=== PATIENT | female | born 1955 | race Caucasian/White ===

== ENCOUNTER 2018-06-15 11:10 | Emergency (ER) | payer BC ==
[2018-06-15 11:40] LABS: BILIRUBIN,URINE NEGATIVE (NEGATIVE); GLUCOSE, URINE (UA) NEGATIVE (NEGATIVE); KETONES,URINE (UA) NEGATIVE (NEGATIVE); LEUKOCYTE ESTERASE, URINE MODERATE (NEGATIVE); NITRITE,URINE NEGATIVE (NEGATIVE); OCCULT BLOOD,URINE MODERATE (NEGATIVE); PH,URINE 7.5 PH (5.0-7.5); PROTEIN,URINE TRACE mg/dL (NEGATIVE); UROBILINOGEN,URINE 0.2 (NORMAL) E.U./dL (NORMAL)
[2018-06-15 11:42] LABS: CLARITY,URINE CLOUDY (CLEAR)
[2018-06-15 11:48] LABS: BACTERIA,URINE Moderate /HPF (None Seen); SQUAMOUS EPITHELIAL CELL,UR FEW Squamous (<= Few)
[2018-06-15] MEDS ORDERED: PHENAZOPYRIDINE 100 MG TABLET PO STA (12:12)
[2018-06-15] MEDS ORDERED: cephALEXin 250 MG CAPSULE PO STA (12:12)
--- NOTE | 2018-06-15 12:15 | ED Physician Documentation ---
History of Present Illness - Stated complaint Stated Complaint: FEMALE - Chief complaint Chief Complaint: Abd Pain - Additonal information Additional information: hx from pt 62 f visiting locally to ED with several weeks of dysuria freq and some hematuria no sig flank pain chills no fever no NV is sexually active Review of Systems Constitutional: reports: Chills. denies: Fever Cardiac: denies: Chest pain / pressure Respiratory: denies: Cough GI: reports: Abdominal Pain (suprapubic). 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 Derm: Skin cancer surgery - Present Medications Home Medications: Ambulatory Orders Medication Instructions Recorded Confirmed Cephalexin [Keflex] 500 mg PO Q6H #28 capsule 06/15/18 Paroxetine HCl [Paxil] 20 mg 06/15/18 Phenazopyridine [Pyridium] 100 mg PO Q8H PRN #9 tablet 06/15/18 - Allergies Allergies/Adverse Reactions: Allergies Allergy/AdvReac Type Severity Reaction Status Date / Time No Known Drug Allergies Allergy Verified 06/15/18 11:19 - Social History Does the pt smoke?: Yes Smoking Status: Current every day smoker Does the pt drink ETOH?: Yes Does the pt have substance abuse?: No - Immunizations Immunizations: TDAP >10years/unknown, Other immun current PD ED PE NORMAL - Vitals Vital signs reviewed: Yes - Cardiac Cardiac: RRR - Respiratory Respiratory: No respiratory distress - Abdomen Abdomen: Soft, Other (mild suprapubic TTP) - Back Back: No CVA TTP - Neuro Neuro: Alert and oriented X 3 Results - Vitals Vitals: Vital Signs - 24 hr 06/15/18 11:17 Temperature 36.6 C Heart Rate 87 Respiratory 20 Rate Blood Pressure 131/82 H O2 Saturation 97 - Labs Labs: Laboratory Tests 06/15/18 11:30 Urine Color YELLOW Urine Clarity CLOUDY Urine pH 7.5 Ur Specific [place] 1.010 Urine Protein TRACE Urine Glucose (UA) NEGATIVE Urine Ketones NEGATIVE Urine Occult Blood MODERATE H Urine Nitrite NEGATIVE Urine Bilirubin NEGATIVE Urine Urobilinogen 0.2 (NORMAL) Ur Leukocyte Esterase MODERATE H Urine RBC 6-10 H Urine WBC >25 H Ur Squamous Epith Cells FEW Squamous Urine Bacteria Moderate H Ur Microscopic Review INDICATED Urine Culture Comments INDICATED PD MEDICAL DECISION MAKING - ED course ED course: MSE performed infection identified = UTI small blood but no flank pain so doubt stone sexually active but denies risk for STDs -added on STDs to urine but defer pelvic exam will tx and dc - Sepsis Event Vital Signs: Vital Signs - 24 hr 06/15/18 11:17 Temperature 36.6 C Heart Rate 87 Respiratory 20 Rate Blood Pressure 131/82 H O2 Saturation 97 Departure - Departure Disposition: Home, Self Care Clinical Impression: UTI (urinary tract infection) Qualifiers: Urinary tract infection type: acute cystitis Hematuria presence: with hematuria Qualified Code(s): N30.01 - Acute cystitis with hematuria Condition: Good Instructions: ED UTI Cystitis Female Prescriptions: Cephalexin [Keflex] 500 mg PO Q6H #28 capsule Phenazopyridine [Pyridium] 100 mg PO Q8H PRN #9 tablet PRN Reason: painful urination Comments: You have a urine infection. A culture will be run and the ER staff will call you if the culture indicates you need to be on a different antibiotics than the one I already prescribes Please follow up with your PMD for a repeat urine test after completing antibiotics to be sure all the infection and blood have cleared Return if worse (high fever, severe flank pain, vomtiign and cannot keep medications down)
[2018-06-15 12:32] VITALS: BP 123/73
== END 2018-06-15 12:31 | disposition home or self-care (01) ==
LOC: ED 11:10
DX: N30.01 Acute cystitis with hematuria (principal)
CPT/HCPCS: 81001; 87077; 87086; 87491; 87591; 99283; A9270; 81003

== ENCOUNTER 2019-02-11 20:37 | Emergency (ER) | payer BC ==
[2019-02-11 20:42] VITALS: BP 127/70
[2019-02-11] MEDS ORDERED: PHENAZOPYRIDINE 100 MG TABLET PO STA (20:57)
[2019-02-11] MEDS ORDERED: cephALEXin 250 MG CAPSULE PO STA (20:58)
--- NOTE | 2019-02-11 21:00 | ED Physician Documentation ---
History of Present Illness - Stated complaint Stated Complaint: FEMALE - Chief complaint Chief Complaint: UTI - History obtained from History obtained from: Patient - History of Present Illness Timing: Today - Additonal information Additional information: Patient is a previously healthy 63-year-old female presenting with concern for possible bladder infection. Patient has had UTIs in the past and states symptoms are similar to previous episodes. Patient reports symptoms started earlier today with dysuria, hematuria, and sensation of full bladder. Patient family denies fever, back pain, abdominal pain, nausea, vomiting, or stool changes. No particular improving or worsening factors to her symptoms noted. Review of Systems Constitutional: denies: Fever : reports: Dysuria, Hematuria PD PAST MEDICAL HISTORY - Past Medical History Past Medical History: Yes Cardiovascular: None Respiratory: None Neuro: None Endocrine/Autoimmune: None GI: None LOGISTIC SPECIALIST: None : None HEENT: None Psych: None Musculoskeletal: None Derm: Other Other Past Medical History: melanoma - Past Surgical History Past Surgical History: Yes /LOGISTIC SPECIALIST: Hysterectomy Derm: Skin cancer surgery - Present Medications Home Medications: Ambulatory Orders Medication Instructions Recorded Confirmed Cephalexin [Keflex] 500 mg PO Q6H #28 capsule 06/15/18 Paroxetine HCl [Paxil] 20 mg 06/15/18 Phenazopyridine [Pyridium] 100 mg PO Q8H PRN #9 tablet 06/15/18 Cephalexin [Keflex] 500 mg PO Q6HR #28 capsule 02/11/19 Phenazopyridine HCl [Pyridium] 200 mg PO TID PRN #6 tablet 02/11/19 - Allergies Allergies/Adverse Reactions: Allergies Allergy/AdvReac Type Severity Reaction Status Date / Time No Known Drug Allergies Allergy Verified 02/11/19 20:39 - Social History Does the pt smoke?: Yes Smoking Status: Former smoker Does the pt drink ETOH?: Yes Does the pt have substance abuse?: No - Immunizations Immunizations are current?: No Immunizations: TDAP >10years/unknown, Other immun current - POLST Patient has POLST: No PD ED PE NORMAL - General General: Alert and oriented X 3, No acute distress, Well developed/nourished - HEENT HEENT: Atraumatic - Cardiac Cardiac: RRR, No murmur - Respiratory Respiratory: No respiratory distress, Clear bilaterally - Abdomen Abdomen: Normal bowel sounds, Soft, Non tender (No suprapubic tenderness), Non distended - Back Back: No CVA TTP - Derm Derm: Normal color, Warm and dry, No rash - Extremities Extremities: No deformity, No tenderness to palpate - Neuro Neuro: Alert and oriented X 3, No motor deficit, No sensory deficit - Psych Psych: Normal mood, Normal affect Results - Vitals Vitals: Vital Signs - 24 hr 02/11/19 20:41 Temperature 36.6 C Heart Rate 67 Respiratory 16 Rate Blood Pressure 127/70 O2 Saturation 98 Oxygen O2 Source Room air PD MEDICAL DECISION MAKING - ED course Complexity details: considered differential, d/w patient ED course: Most concerning for uncomplicated hemorrhagic cystitis or urinary tract infection based on history of UTIs, symptoms similar today, and physical exam findings. Do not have high suspicion for nephrolithiasis or pyelonephritis, particularly given lack of CVA tenderness or other complaints. Also do not have high suspicion for other intra-abdominal pathology at this time. Discussed giving first dose of antibiotic and Pyridium in ED, as well as use medications at home, supportive cares, return precautions and follow-up. Patient voiced understanding and is comfortable with discharge plan. Departure - Departure Disposition: Home, Self Care Clinical Impression: Cystitis UTI (urinary tract infection) Qualifiers: Urinary tract infection type: site unspecified Hematuria presence: with hematuria Qualified Code(s): N39.0 - Urinary tract infection, site not specified; R31.9 - Hematuria, unspecified Condition: Good Instructions: ED UTI Cystitis Female Follow-Up: Bobby Rosas MD [Primary Care Provider] - Within 3 Days Prescriptions: Cephalexin [Keflex] 500 mg PO Q6HR #28 capsule Phenazopyridine HCl [Pyridium] 200 mg PO TID PRN #6 tablet PRN Reason: dysuria Comments: Please use Pyridium and Keflex to help with pain and infection, respectively. Recommend taking medications with food to avoid upset stomach. Also recommend hydration, healthy diet, and follow-up with primary care physician in the next 2-3 days. Return to ED sooner if expands worsening symptoms or other concerns.
[2019-02-11 21:04] LABS: BILIRUBIN,URINE NEGATIVE (NEGATIVE); GLUCOSE, URINE (UA) NEGATIVE (NEGATIVE); KETONES,URINE (UA) NEGATIVE (NEGATIVE); LEUKOCYTE ESTERASE, URINE SMALL (NEGATIVE); NITRITE,URINE NEGATIVE (NEGATIVE); OCCULT BLOOD,URINE MODERATE (NEGATIVE); PH,URINE 6.5 PH (5.0-7.5); PROTEIN,URINE TRACE mg/dL (NEGATIVE); UROBILINOGEN,URINE 0.2 (NORMAL) E.U./dL (NORMAL)
[2019-02-11 21:07] LABS: BACTERIA,URINE Few /HPF (None Seen); CLARITY,URINE CLOUDY (CLEAR); RBC,URINE TNTC /HPF (0-5); SQUAMOUS EPITHELIAL CELL,UR RARE Squamous (<= Few)
== END 2019-02-11 21:30 | disposition home or self-care (01) ==
LOC: ED 20:37
DX: N30.91 Cystitis, unspecified with hematuria (principal); Z85.820 Personal history of malignant melanoma of skin; Z87.891 Personal history of nicotine dependence
CPT/HCPCS: 81001; 87077; 87086; 99283; A9270; 81003; 87181